=== PATIENT | female | born 1935 | race Caucasian/White ===

== ENCOUNTER 2022-03-29 12:16 | Inpatient (IN) ==
[2022-03-29 13:50] LABS: Basophils % 0.2 % (0.0-0.8); Eosinophils % 0.5 % (0.00-10.9); Hematocrit 34.1 VOL% (35.7-47.0); Hemoglobin 10.2 GM/DL (12.0-16.0); Immature Granulocytes % 0.5 %; Immature Granulocytes Absolute 0.04 #; Lymphocytes % 11.3 % (21.3-54.2); Mean Corpuscular HGB Conc 29.9 GM/DL (32-36); Mean Corpuscular Volume 99.7 FL (87-102); Mean Platelet Volume 10.6 FL (9.6-12.0); Monocytes # 0.7 10*3/uL (0.11-0.8); Monocytes % 7.6 % (1.7-12.7); Neutrophils % 79.9 % (38.7-73.9); Platelet Count 210 T/CUMM (130-400); Red Blood Count 3.42 MC/CUMM (3.8-5.5); White Blood Count 8.53 T/CUMM (4-12)
[2022-03-29 14:17] LABS: Albumin 2.8 G/DL (3.4-5.0); Bilirubin,Total 0.6 MG/DL (0.20-1.00); Calcium 8.7 MG/DL (8.5-10.1); Osmolality,Calculated 286.3 MOS/KG (273-304); Potassium 4.2 MMOL/L (3.5-5.1); Total Protein 8.6 G/DL (6.4-8.2)
[2022-03-29] MEDS ORDERED: AZITHROMYCIN INJ 500 MG in SODIUM CHLORIDE 0.9% 250 ML IV STA (15:34)
[2022-03-29] MEDS ORDERED: cefTRIAXone 1,000 MG in SODIUM CHLORIDE 0.9% 100 ML IV STA (15:34)
[2022-03-29] MEDS ORDERED: ONDANSETRON 4 MG/2 ML VIAL IV PRN (15:53)
[2022-03-29] MEDS ORDERED: ACETAMINOPHEN 325 MG TABLET PO PRN (15:53)
[2022-03-29] MEDS ORDERED: FLUTICASONE 50 MCG NASAL SPRAY 16 GM BOTTLE BOTH NARES PRN (16:39)
[2022-03-29] MEDS: ENOXAPARIN 40 MG/0.4 ML SYRINGE SUBCUT SCH (17:43)
[2022-03-29] MEDS: ALBUTEROL 2.5 MG/3 ML NEB RESP TX SCH (19:33)
[2022-03-29] MEDS: ALPRAZolam 0.5 MG TABLET PO PRN (21:10)
[2022-03-29] MEDS: MUPIROCIN 2% OINT 22 GM TUBE TOP SCH (21:11)
[2022-03-29] MEDS: ROSUVASTATIN 20 MG TABLET PO SCH (21:11)
[2022-03-29] MEDS: MONTELUKAST 10 MG TABLET PO SCH ×2 (21:11→21:13)
[2022-03-29] MEDS: GABAPENTIN 100 MG CAPSULE PO SCH (21:11)
[2022-03-29] MEDS ORDERED: KETOROLAC 15 MG/1 ML VIAL IV ONE (23:35)
[2022-03-30] MEDS: ALBUTEROL 2.5 MG/3 ML NEB RESP TX SCH ×4 (02:04→19:20)
[2022-03-30] MEDS ORDERED: SODIUM CHLORIDE 0.9% 250 ML IV ONE (03:49)
[2022-03-30] MEDS: LEVOTHYROXINE 75 MCG TABLET PO SCH (05:42)
[2022-03-30 06:30] LABS: Albumin 2.2 G/DL (3.4-5.0); Bilirubin,Total 0.4 MG/DL (0.20-1.00); Calcium 7.9 MG/DL (8.5-10.1); Osmolality,Calculated 287.3 MOS/KG (273-304); Potassium 4.1 MMOL/L (3.5-5.1); Total Protein 7.2 G/DL (6.4-8.2)
[2022-03-30 07:19] LABS: Basophils % 0.3 % (0.0-0.8); Eosinophils # 0.1 10*3/uL (0.0-0.87); Eosinophils % 1.4 % (0.00-10.9); Hematocrit 30.4 VOL% (35.7-47.0); Hemoglobin 9.1 GM/DL (12.0-16.0); Immature Granulocytes % 0.3 %; Immature Granulocytes Absolute 0.02 #; Lymphocytes # 0.9 10*3/uL (1.4-4.0); Lymphocytes % 14.7 % (21.3-54.2); Mean Corpuscular HGB Conc 29.9 GM/DL (32-36); Mean Platelet Volume 10.2 FL (9.6-12.0); Monocytes # 0.7 10*3/uL (0.11-0.8); Monocytes % 11.5 % (1.7-12.7); Neutrophils % 71.8 % (38.7-73.9); Platelet Count 177 T/CUMM (130-400); Red Blood Count 3.04 MC/CUMM (3.8-5.5); Red Cell Distribution Width 16.6 % (9.3-17.3); White Blood Count 6.26 T/CUMM (4-12)
[2022-03-30] MEDS: MUPIROCIN 2% OINT 22 GM TUBE TOP SCH ×2 (08:45→21:53)
[2022-03-30] MEDS: GABAPENTIN 100 MG CAPSULE PO SCH ×3 (08:45→21:52)
[2022-03-30] MEDS: PANTOPRAZOLE 40 MG TABLET PO SCH (08:46)
[2022-03-30] MEDS: CHOLECALCIFEROL 1,000 UNIT TABLET PO SCH (08:46)
[2022-03-30] MEDS: VITAMIN E 400 UNIT CAPSULE PO SCH (08:46)
[2022-03-30] MEDS: ALPRAZolam 0.5 MG TABLET PO PRN ×2 (08:53→21:56)
[2022-03-30] MEDS ORDERED: NON-FORMULARY MEDICATION (Ascorbate Calcium-Bioflavonoid [Ester-C With Bioflavonoids] 500- PO SCH (09:00)
[2022-03-30] MEDS: VALSARTAN 160 MG TABLET PO SCH (09:00)
[2022-03-30] MEDS ORDERED: cefTRIAXone 1,000 MG in SODIUM CHLORIDE 0.9% 100 ML IV SCH (15:00)
[2022-03-30] MEDS ORDERED: AZITHROMYCIN INJ 500 MG in SODIUM CHLORIDE 0.9% 250 ML IV SCH (16:00)
[2022-03-30] MEDS: ENOXAPARIN 40 MG/0.4 ML SYRINGE SUBCUT SCH (18:05)
[2022-03-30] MEDS: ROSUVASTATIN 20 MG TABLET PO SCH (21:52)
[2022-03-30] MEDS: MONTELUKAST 10 MG TABLET PO SCH (21:52)
[2022-03-31] MEDS: ALBUTEROL 2.5 MG/3 ML NEB RESP TX SCH ×2 (01:33→07:34)
[2022-03-31] MEDS: LEVOTHYROXINE 75 MCG TABLET PO SCH (06:15)
[2022-03-31 07:17] VITALS: BP 114/48
[2022-03-31] MEDS: GABAPENTIN 100 MG CAPSULE PO SCH (08:53)
[2022-03-31] MEDS: PANTOPRAZOLE 40 MG TABLET PO SCH (08:53)
[2022-03-31] MEDS: VITAMIN E 400 UNIT CAPSULE PO SCH (08:53)
[2022-03-31] MEDS: ALPRAZolam 0.5 MG TABLET PO PRN (08:53)
[2022-03-31] MEDS: CHOLECALCIFEROL 1,000 UNIT TABLET PO SCH (08:53)
[2022-03-31] MEDS: MUPIROCIN 2% OINT 22 GM TUBE TOP SCH (08:55)
[2022-03-31] MEDS: VALSARTAN 160 MG TABLET PO SCH (09:20)
== END 2022-03-31 10:57 | disposition home or self-care (01) | DRG 195 ==
LOC: N.ED 12:16 → SUATTDRO 15:53 → N.2E 15:53
PROVIDERS: ADMIT Internal Medicine; ATTEND Hospitalist